=== PATIENT | male | born 1980 | race Caucasian/White ===

== ENCOUNTER 2019-08-20 14:02 | Outpatient (CLI) | payer OTHER | END 2019-08-20 14:08 | disposition home or self-care (01) | LOC: RAD 14:02 | DX: S62.307A Unspecified fracture of fifth metacarpal bone, left hand, initial encounter for closed fracture (principal) ==

== ENCOUNTER 2019-08-25 14:25 | Emergency (ER) | payer OTHER ==
[~2019-08-25] VITALS: Ht 182.9 cm; Wt 86.2 kg
== END 2019-08-25 17:10 | disposition home or self-care (01) ==
LOC: ER 14:25
DX: S62.627A Displaced fracture of middle phalanx of left little finger, initial encounter for closed fracture (principal); W21.05XA Struck by basketball, initial encounter; Y93.89 Activity, other specified; Y92.89 Other specified places as the place of occurrence of the external cause; Y99.8 Other external cause status

== ENCOUNTER 2020-01-05 15:22 | Emergency (ER) | payer OTHER ==
[~2020-01-05] VITALS: Ht 182.9 cm; Wt 86.2 kg
== END 2020-01-05 16:41 | disposition home or self-care (01) ==
LOC: ER 15:22
DX: S91.322A Laceration with foreign body, left foot, initial encounter (principal); W26.8XXA Contact with other sharp object(s), not elsewhere classified, initial encounter; Y93.89 Activity, other specified; Y92.832 Beach as the place of occurrence of the external cause; Y99.8 Other external cause status

== ENCOUNTER 2020-01-11 12:26 | Emergency (ER) | payer OTHER ==
[~2020-01-11] VITALS: Ht 182.9 cm; Wt 88.5 kg
== END 2020-01-11 16:19 | disposition home or self-care (01) ==
LOC: ER 12:26
DX: Z48.02 Encounter for removal of sutures (principal)

== ENCOUNTER 2022-03-15 15:03 | Outpatient (CLI) | payer OTHER | END 2022-03-15 15:04 | disposition home or self-care (01) | LOC: RAD 15:03 | PROVIDERS: ATTEND Internal Medicine | DX: E55.9 Vitamin D deficiency, unspecified (principal) ==

== ENCOUNTER 2022-09-28 23:52 | Emergency (ER) | payer OTHER ==
[~2022-09-28] VITALS: Ht 182.9 cm; Wt 85.3 kg
[2022-09-29] MEDS ORDERED: DEPAKOTE ER500 MG (00:16)
[2022-09-29] MEDS ORDERED: RISPERDAL2 MG (00:17)
[2022-09-29] MEDS ORDERED: DOXEPIN HCL10 MG (00:17)
[2022-09-29] MEDS ORDERED: AMBIEN10 MG PO (01:09)
== END 2022-09-29 01:22 ==
LOC: ER 23:52
DX: G47.00 Insomnia, unspecified (principal)

== ENCOUNTER 2023-10-22 21:25 | Emergency (ER) | payer OTHER ==
[~2023-10-22] VITALS: Ht 182.9 cm; Wt 77.1 kg
[~2023-10-22 21:25] MED LIST: AMBIEN10 MG PO; DEPAKOTE ER500 MG; DOXEPIN HCL10 MG; RISPERDAL2 MG
[2023-10-22] MEDS ORDERED: CLONAZEPAM1 M1 (21:55)
[2023-10-22] MEDS ORDERED: TRAZODONE HCL50 MG (21:55)
[2023-10-22] MEDS ORDERED: FLOXURIDINE500 MG (21:56)
== END 2023-10-23 00:29 | disposition home or self-care (01) ==
LOC: ER 21:26
DX: M67.431 Ganglion, right wrist (principal); Z88.0 Allergy status to penicillin

== ENCOUNTER 2024-10-27 15:24 | Emergency (ER) | payer OTHER ==
[~2024-10-27] VITALS: Ht 182.9 cm; Wt 76.2 kg
[~2024-10-27 15:24] MED LIST changes: +CLONAZEPAM1 M1; +FLOXURIDINE500 MG; +TRAZODONE HCL50 MG
[2024-10-27] MEDS ORDERED: PROZAC20 MG PO (16:12)
[2024-10-27 19:21] LABS: ALBUMIN 3.9 gm/dL (3.4-5.0); BILIRUBIN TOTAL 0.29 mg/dL (0.3-1.2); CALCIUM 8.8 mg/dL (8.5-10.1); CREATININE SERUM 1.17 mg/dL (0.70-1.30); GFR 67.41; GLOBULINA 3.7 G/DL (2.4-3.5); POTASSIUM 4.34 mEq/L (3.5-5.1); TOTAL PROTEIN 7.6 gm/dL (6.4-8.2)
== END 2024-10-27 22:46 | disposition home or self-care (01) ==
LOC: ER 15:26
PROVIDERS: General Practice
DX: M54.9 Dorsalgia, unspecified (principal); Z88.0 Allergy status to penicillin

== ENCOUNTER 2024-11-18 14:26 | Emergency (ER) | payer OTHER ==
[~2024-11-18] VITALS: Ht 182.9 cm; Wt 77.1 kg
[~2024-11-18 14:26] MED LIST changes: +PROZAC20 MG PO
[2024-11-18 18:10] LABS: HEMATOCRIT 38.2 % (39.0-48.0); HEMOGLOBIN 13.1 g/dL (13-16.00); MEAN CELL VOLUME 88.5 fL (80.0-100.00); MEAN CORPUSCULAR HEMOGLOBIN 30.3 pg (27.00-32.0); MEAN CORPUSCULAR HGB CONC 34.3 g/dl (32.0-36.0); PLATELET COUNT 175 K/uL (150-450); RED BLOOD COUNT 4.32 M/uL (4.00-6.00); RED CELL DISTRIBUTION WIDTH 14.3 % (11.5-14.5)
[2024-11-18] MEDS ORDERED: KETOROLAC TROMETHAMINE 60 MG VIAL IM ONE ×2 (19:15→19:23)
[2024-11-18] MEDS ORDERED: DEXAMETHASONE SODIUM PHOSPHATE 4 MG/ML VIAL IM ONE (19:15)
[2024-11-18] MEDS ORDERED: BACLOFEN10 MG PO (19:16)
[2024-11-18] MEDS ORDERED: ORPHENADRINE CITRATE 30 MG/ML AMPUL ONE (19:22)
[2024-11-18] MEDS ORDERED: DEXAMETHASONE SODIUM PHOSPHATE 4 MG/ML VIAL ONE (19:23)
== END 2024-11-18 19:44 | disposition home or self-care (01) ==
LOC: ER 14:28
PROVIDERS: Preventive Medicine Public Health & General Preventive Medicine
DX: R51.9 Headache, unspecified (principal); Z20.822 Contact with and (suspected) exposure to COVID-19; Z88.0 Allergy status to penicillin
CPT/HCPCS: 36415; 70486; 96372; 99284; J1100; J1885

== ENCOUNTER 2024-11-20 03:13 | Emergency (ER) | payer OTHER ==
[~2024-11-20] VITALS: Ht 182.9 cm; Wt 79.4 kg
[~2024-11-20 03:13] MED LIST changes: +BACLOFEN10 MG PO
[2024-11-20] MEDS ORDERED: KETOROLAC TROMETHAMINE 60 MG VIAL IM STA (03:34)
[2024-11-20] MEDS ORDERED: DEXAMETHASONE SODIUM PHOSPHATE 4 MG/ML VIAL IM STA (03:35)
[2024-11-20] MEDS ORDERED: CLINDAMYCIN PHOSPHATE 150 MG/ML (600mg) IM STA (03:35)
[2024-11-20] MEDS ORDERED: OxyCODONE HCL/APAP UD (PERCOCET) PO STA (03:36)
[2024-11-20] MEDS ORDERED: CLINDAMYCIN PHOSPHATE 150 MG/ML (300mg) ONE (03:41)
[2024-11-20] MEDS ORDERED: KETOROLAC TROMETHAMINE 60 MG VIAL IM ONE (03:42)
[2024-11-20] MEDS ORDERED: DEXAMETHASONE SODIUM PHOSPHATE 4 MG/ML VIAL ONE (03:42)
== END 2024-11-20 03:55 | disposition home or self-care (01) ==
LOC: ER 03:13
DX: K08.89 Other specified disorders of teeth and supporting structures (principal); K05.10 Chronic gingivitis, plaque induced; Z88.0 Allergy status to penicillin
CPT/HCPCS: 96372; 99282; J1100; J1885; J3490

== ENCOUNTER 2025-04-17 18:57 | Emergency (ER) | payer OTHER ==
[~2025-04-17] VITALS: Ht 182.9 cm; Wt 76.2 kg
[2025-04-17 20:13] LABS: BASO % 0.4 % (0.1-1.2); EOS # 0.11 (0.04-0.54); EOS % 2.2 % (0.7-7.0); HEMATOCRIT 35.7 % (40.1-51.0); LYMPH # 1.43 (1.18-3.74); LYMPH % 28.9 % (19.3-53.1); MEAN CORPUSCULAR HEMOGLOBIN 29.9 pg (25.6-32.2); MONO % 8.1 % (4.7-12.5); NEUT # 2.97 (1.56-6.13); NEUT % 60.2 % (34.0-71.1); PLATELET COUNT 151 K/uL (163-369); RED BLOOD COUNT 4.02 M/uL (4.63-6.08)
[2025-04-17 20:49] LABS: ALBUMIN 3.5 gm/dL (3.4-5.0); BILIRUBIN TOTAL 0.34 mg/dL (0.3-1.2); CALCIUM 8.7 mg/dL (8.5-10.1); CREATININE SERUM 1.35 mg/dL (0.70-1.30); GFR 56.9; GLOBULINA 3.4 G/DL (2.4-3.5); POTASSIUM 4.68 mEq/L (3.5-5.1); TOTAL PROTEIN 6.9 gm/dL (6.4-8.2)
[2025-04-17] MEDS ORDERED: BUTALB-ACETAMI1 EAC2 PO (21:51)
== END 2025-04-17 22:06 | disposition home or self-care (01) ==
LOC: ER 18:57
PROVIDERS: General Practice
DX: H61.21 Impacted cerumen, right ear (principal); R51.9 Headache, unspecified; Z88.0 Allergy status to penicillin

== ENCOUNTER 2025-07-01 18:02 | Emergency (ER) | payer OTHER ==
[~2025-07-01] VITALS: Ht 175.3 cm; Wt 68.0 kg
[~2025-07-01 18:02] MED LIST changes: +BUTALB-ACETAMI1 EAC2 PO
[2025-07-01 20:01] LABS: BASO % 0.7 % (0.1-1.2); EOS # 0.12 (0.04-0.54); EOS % 2.0 % (0.7-7.0); LYMPH # 1.65 (1.18-3.74); LYMPH % 27.9 % (19.3-53.1); MEAN PLATELET VOLUME 9.70 fl (9.4-12.4); MONO # 0.57 (0.24-0.82); MONO % 9.6 % (4.7-12.5); NEUT # 3.52 (1.56-6.13); NEUT % 59.6 % (34.0-71.1); RED CELL DISTRIBUTION WIDTH 12.4 % (11.6-14.4)
[2025-07-01 20:57] LABS: ALT/SGPT 20.0 U/L (12-78); AST/SGOT 16.0 U/L (15-37); BILIRUBIN TOTAL 0.4 mg/dL (0.3-1.2); BUN CREA RATIO 17.0 (7.0-25.0); CREATININE SERUM 1.28 mg/dL (0.70-1.30); GFR 60.5; GLOBULINA 3.2 G/DL (2.4-3.5); GLUCOSE FASTING 107.0 mg/dL (65-100); LDH 131.0 U/L (87-241); OSMOLALITY SERUM 291.0 MOSM/KG (275-295); PHOSPHOKINASE CREATININE 117.0 U/L (39-308)
== END 2025-07-01 22:53 | disposition home or self-care (01) ==
LOC: ER 18:02
PROVIDERS: Emergency Medicine
DX: R07.9 Chest pain, unspecified (principal); M94.0 Chondrocostal junction syndrome [Tietze]; F41.8 Other specified anxiety disorders; Z88.0 Allergy status to penicillin

== ENCOUNTER 2025-07-16 13:36 | Outpatient (CLI) | payer OTHER | END 2025-07-16 13:41 | disposition home or self-care (01) | LOC: RAD 13:36 | PROVIDERS: ATTEND Internal Medicine | DX: M54.2 Cervicalgia (principal) ==

== ENCOUNTER 2025-08-13 13:53 | Outpatient (CLI) | payer OTHER | END 2025-08-13 14:11 | disposition home or self-care (01) | LOC: MRI 13:53 | PROVIDERS: ATTEND Internal Medicine | DX: M25.561 Pain in right knee (principal) | CPT/HCPCS: 73721 ==